=== PATIENT | female | born 1980 | race Hispanic/Latino ===

== ENCOUNTER 2017-08-19 23:16 | Emergency (ER) | payer MEDICAID | END 2017-08-20 01:00 | disposition home or self-care (01) | LOC: EDH 23:16 | DX: L02.413 Cutaneous abscess of right upper limb (principal); E11.9 Type 2 diabetes mellitus without complications; I10 Essential (primary) hypertension; Z79.4 Long term (current) use of insulin; Z98.890 Other specified postprocedural states | CPT/HCPCS: 10060 ==

== ENCOUNTER 2017-08-23 11:20 | Emergency (ER) | payer MEDICAID | END 2017-08-23 12:07 | disposition home or self-care (01) | LOC: EDH 11:20 | DX: L08.9 Local infection of the skin and subcutaneous tissue, unspecified (principal); E11.9 Type 2 diabetes mellitus without complications; I10 Essential (primary) hypertension; Z89.429 Acquired absence of other toe(s), unspecified side; Z79.4 Long term (current) use of insulin | CPT/HCPCS: 87070; 87076 ==

== ENCOUNTER 2017-08-25 10:48 | Emergency (ER) | payer MEDICAID | END 2017-08-25 11:13 | disposition home or self-care (01) | LOC: EDH 10:48 | DX: Z48.01 Encounter for change or removal of surgical wound dressing (principal); I10 Essential (primary) hypertension; E11.65 Type 2 diabetes mellitus with hyperglycemia; E11.40 Type 2 diabetes mellitus with diabetic neuropathy, unspecified; Z79.4 Long term (current) use of insulin; Z98.51 Tubal ligation status; Z98.890 Other specified postprocedural states | CPT/HCPCS: 99281 ==

== ENCOUNTER 2017-09-18 16:25 | Emergency (ER) | payer MEDICAID ==
[2017-09-18 16:56] LABS: APPEARANCE,URINE Cloudy (CLEAR); BILIRUBIN,URINE Negative (NEGATIVE); COLOR,URINE Yellow (YELLOW); GLUCOSE, URINE (UA) >=1000 mg/dL (NEGATIVE); HCG,QUAL RESULT NEGATIVE (NEGATIVE); KETONES,URINE Negative (NEGATIVE); LEUKOCYTE ESTERASE ,URINE Negative (NEGATIVE); NITRATE,URINE Negative (NEGATIVE); OCCULT BLOOD,URINE Small (NEGATIVE); PROTEIN,URINE 300 (NEGATIVE); UROBILINOGEN,URINE 0.2 mg/dL (0.2-1.0)
[2017-09-18 17:09] LABS: BACTERIA,URINE Few /HPF (None Seen); WBC,URINE 0-1 /HPF (0-1)
[2017-09-18 17:13] LABS: BASOPHILS % (AUTO) 1.1 % (0.0-5.0); EOSINOPHILS % (AUTO) 1.6 % (0.0-8.0); HEMATOCRIT 31.5 % (36-48); LYMPHOCYTES % (AUTO) 25.2 % (21.0-51.0); MEAN CORPUSCULAR HEMOGLOBIN 28.6 pg (27.0-33.0); MEAN CORPUSCULAR HGB CONC 33.9 g/dL (32.0-36.0); MEAN CORPUSCULAR VOLUME 84.5 fL (79-99); MONOCYTES % (AUTO) 5.2 % (3.0-13.0); NEUTROPHILS % (AUTO) 66.9 % (40.0-77.0); NUCLEATED RED BLOOD CELLS 0.1 % (0.0-0.19); PLATELET COUNT (AUTO) 161 K/uL (130-400); RED BLOOD CELL COUNT(AUTO) 3.73 MIL/uL (4.00-5.50); RED CELL DISTRIBUTION WIDTH 14.3 % (11.0-15.5)
[2017-09-18 18:02] LABS: CREATININE 0.8 mg/dL (0.5-1.5); POTASSIUM 4.3 mmol/L (3.5-5.1)
== END 2017-09-18 18:14 | disposition home or self-care (01) ==
LOC: EDH 16:25
DX: E11.65 Type 2 diabetes mellitus with hyperglycemia (principal); R35.0 Frequency of micturition; E11.40 Type 2 diabetes mellitus with diabetic neuropathy, unspecified; I10 Essential (primary) hypertension; Z79.4 Long term (current) use of insulin; Z98.51 Tubal ligation status
CPT/HCPCS: 36415; 80048; 81001; 81025; 82948; 85025

== ENCOUNTER 2018-01-12 20:14 | Emergency (ER) | payer MEDICAID | END 2018-01-12 21:53 | disposition home or self-care (01) | LOC: EDH 20:14 | DX: H53.9 Unspecified visual disturbance (principal); E11.9 Type 2 diabetes mellitus without complications; I10 Essential (primary) hypertension; Z98.51 Tubal ligation status; Z98.890 Other specified postprocedural states | CPT/HCPCS: 99282 ==

== ENCOUNTER 2018-12-04 17:42 | Emergency (ER) | payer MEDICAID ==
[2018-12-04 18:50] LABS: BASOPHILS % (AUTO) 1.6 % (0.0-5.0); EOSINOPHILS % (AUTO) 0.8 % (0.0-8.0); HEMATOCRIT 32.6 % (36-48); LYMPHOCYTES % (AUTO) 10.5 % (21.0-51.0); MEAN CORPUSCULAR HEMOGLOBIN 27.3 pg (27.0-33.0); MEAN CORPUSCULAR VOLUME 82.9 fL (79-99); NEUTROPHILS % (AUTO) 81.1 % (40.0-77.0); PLATELET COUNT (AUTO) 198 K/uL (130-400); RED BLOOD CELL COUNT(AUTO) 3.94 MIL/uL (4.00-5.50); RED CELL DISTRIBUTION WIDTH 15.1 % (11.0-15.5); WHITE BLOOD COUNT (AUTO) 14.7 K/uL (4.8-10.8)
[2018-12-04 19:03] LABS: CREATININE 2.4 mg/dL (0.5-1.5); POTASSIUM 4.9 mmol/L (3.5-5.1)
[2018-12-04 19:14] LABS: ALBUMIN 2.2 g/dL (3.5-5.0); BILIRUBIN,TOTAL 0.2 mg/dL (0.2-1.0); TOTAL PROTEIN, SERUM 6.7 g/dL (6.0-8.3)
[2018-12-04] MEDS ORDERED: INSULIN HUMULIN R 100 UNIT/ML 3ML ONE (19:18)
[2018-12-04 19:33] LABS: INR 0.95 (0.85-1.15)
[2018-12-04] MEDS ORDERED: HYDROCODONE/ACETAMINOPHEN 10/325 MG TAB ONE (22:28)
[2018-12-04 22:41] LABS: BILIRUBIN,URINE NEGATIVE (NEGATIVE); COLOR,URINE YELLOW (YELLOW); GLUCOSE, URINE (UA) 500 mg/dL (NEGATIVE); KETONES,URINE NEGATIVE (NEGATIVE); LEUKOCYTE ESTERASE ,URINE SMALL (NEGATIVE); NITRATE,URINE NEGATIVE (NEGATIVE); OCCULT BLOOD,URINE LARGE (NEGATIVE); PH,URINE 5.5 (5.0-8.0); PROTEIN,URINE >=300 mg/dL (NEGATIVE); UROBILINOGEN,URINE 0.2 mg/dL (0.2-1.0)
[2018-12-04 22:42] LABS: APPEARANCE,URINE CLOUDY (CLEAR)
[2018-12-04 22:44] LABS: AMPHET/METH SCREEN,URINE NEGATIVE (NEGATIVE); BARBITURATE SCREEN, URINE NEGATIVE (NEGATIVE); BENZODIAZEPINES SCREEN,URINE NEGATIVE (NEGATIVE); CANNABINOID SCREEN,URINE NEGATIVE (NEGATIVE); COCAINE SCREEN,URINE NEGATIVE (NEGATIVE); OPIATE SCREEN,URINE NEGATIVE (NEGATIVE); PHENCYCLIDINE SCREEN,URINE NEGATIVE (NEGATIVE)
[2018-12-04 23:02] LABS: BACTERIA,URINE Moderate /HPF (None Seen); RBC,URINE 26-50 /HPF (0-1); RENAL EPITHELIAL CELLS,URINE Moderate /HPF (None Seen); SQUAMOUS EPITHELIAL CELL,UR Many /HPF (0-2); WBC,URINE TNTC /HPF (0-1)
[2018-12-04 23:03] LABS: AMORPHOUS SEDIMENT,UR Moderate /LPF (None Seen); TRANSITIONAL EPI CELLS,URINE Few /HPF (None Seen)
== END 2018-12-04 23:28 | disposition home or self-care (01) ==
LOC: EDH 17:42
DX: S30.0XXA Contusion of lower back and pelvis, initial encounter (principal); S09.8XXA Other specified injuries of head, initial encounter; R55 Syncope and collapse; M54.2 Cervicalgia; W18.39XA Other fall on same level, initial encounter; Y93.89 Activity, other specified; Y92.511 Restaurant or cafe as the place of occurrence of the external cause; Y99.8 Other external cause status; R42 Dizziness and giddiness; R51 Headache; E11.40 Type 2 diabetes mellitus with diabetic neuropathy, unspecified; Z79.4 Long term (current) use of insulin; E11.65 Type 2 diabetes mellitus with hyperglycemia; I10 Essential (primary) hypertension; Z98.51 Tubal ligation status
CPT/HCPCS: 36415; 70450; 71045; 72125; 72131; 74176; 80053; 80305; 81001; 82009; 82948 ×2; 84484; 84702; 85025; 85610; 85730; 93005; 96361; 96374; 99285; J1815

== ENCOUNTER 2018-12-05 12:11 | Observation (INO) | payer MEDICAID ==
[~2018-12-05] VITALS: Ht 170.2 cm; Wt 158.3 kg
[2018-12-05 13:12] LABS: APPEARANCE,URINE CLOUDY (CLEAR); BILIRUBIN,URINE NEGATIVE (NEGATIVE); COLOR,URINE YELLOW (YELLOW); GLUCOSE, URINE (UA) >=1000 mg/dL (NEGATIVE); KETONES,URINE NEGATIVE (NEGATIVE); LEUKOCYTE ESTERASE ,URINE SMALL (NEGATIVE); NITRATE,URINE NEGATIVE (NEGATIVE); OCCULT BLOOD,URINE MODERATE (NEGATIVE); PROTEIN,URINE 100 mg/dL (NEGATIVE); UROBILINOGEN,URINE 0.2 mg/dL (0.2-1.0)
[2018-12-05 13:22] LABS: BASOPHILS % (AUTO) 0.5 % (0.0-5.0); EOSINOPHILS % (AUTO) 1.6 % (0.0-8.0); HEMATOCRIT 32.1 % (36-48); LYMPHOCYTES % (AUTO) 19.9 % (21.0-51.0); MEAN CORPUSCULAR HEMOGLOBIN 26.7 pg (27.0-33.0); MEAN CORPUSCULAR HGB CONC 32.6 g/dL (32.0-36.0); MEAN CORPUSCULAR VOLUME 81.8 fL (79-99); MONOCYTES % (AUTO) 7.4 % (3.0-13.0); NEUTROPHILS % (AUTO) 70.6 % (40.0-77.0); PLATELET COUNT (AUTO) 202 K/uL (130-400); RED BLOOD CELL COUNT(AUTO) 3.92 MIL/uL (4.00-5.50); RED CELL DISTRIBUTION WIDTH 14.6 % (11.0-15.5); WHITE BLOOD COUNT (AUTO) 9.2 K/uL (4.8-10.8)
[2018-12-05 13:30] LABS: CREATININE 1.8 mg/dL (0.5-1.5); POTASSIUM 4.2 mmol/L (3.5-5.1)
[2018-12-05 13:34] LABS: ALBUMIN 2.3 g/dL (3.5-5.0); BILIRUBIN,TOTAL 0.1 mg/dL (0.2-1.0); TOTAL PROTEIN, SERUM 6.9 g/dL (6.0-8.3)
[2018-12-05 14:14] LABS: BACTERIA,URINE Many /HPF (None Seen)
[2018-12-05 14:15] LABS: WBC,URINE 26-50 /HPF (0-1)
[2018-12-05] MEDS ORDERED: ACETAMINOPHEN EXTRA STRENGTH 500 MG TABLET ONE (16:23)
[2018-12-05] MEDS ORDERED: CEFTRIAXONE SODIUM 1 GM ONE (16:53)
[2018-12-05] MEDS ORDERED: NITROGLYCERIN 0.4 MG SL TAB SL PRN (19:00)
[2018-12-05] MEDS ORDERED: LACTULOSE 20 GM/30 ML UDCUP PO PRN (19:00)
[2018-12-05] MEDS ORDERED: ONDANSETRON HCL 4 MG/2 ML VIAL IVP PRN (19:00)
[2018-12-05] MEDS ORDERED: SODIUM CHLORIDE 0.9% 10 ML VIAL IVP SCH (19:00)
[2018-12-05] MEDS ORDERED: ACETAMINOPHEN 325 MG TAB PO PRN (19:00)
[2018-12-05] MEDS ORDERED: ZOLPIDEM TARTRATE 5 MG TAB PO PRN (19:00)
[2018-12-05] MEDS ORDERED: DiphenhydrAMINE HCL 50 MG/ML VIAL IVP PRN (19:00)
[2018-12-05] MEDS ORDERED: MAG HYDROX/AL HYDROX/SIMETH ES 30 ML SUSP UDCUP PO PRN (19:00)
[2018-12-05] MEDS ORDERED: DIPHENHYDRAMINE HCL 25 MG CAPSULE PO PRN (19:00)
[2018-12-06 00:55] VITALS: BP 101/54
--- NOTE | 2018-12-06 01:00 | NUR ---
ADMISSION. PT ADMITTED INTO ROOM 414 FROM ER, TRANSFERRED VIA STRETCHER. PT AWAKE, ALERT AND RESPONSIVE. C/O HEADACHE AT THIS TIME, REFER TO eMAR FOR MEDICATION ADMINISTRATION Addendum: 12/06/18 at 0155 by SOFIYA ROSEN RN Amended: Links added.
[2018-12-06] MEDS: ACETAMINOPHEN 325 MG TAB PO PRN ×2 (01:44→06:32)
[2018-12-06] MEDS: SODIUM CHLORIDE 0.9% 1000ML 1,000 ML IV SCH ×3 (02:15→18:18)
[2018-12-06] MEDS: FAMOTIDINE 20MG TAB 20 MG TAB PO SCH ×3 (03:59→20:12)
[2018-12-06 04:57] VITALS: BP 135/77
[2018-12-06 05:39] LABS: BASOPHILS % (AUTO) 0.7 % (0.0-5.0); EOSINOPHILS % (AUTO) 2.5 % (0.0-8.0); HEMATOCRIT 30.1 % (36-48); LYMPHOCYTES % (AUTO) 21.1 % (21.0-51.0); MEAN CORPUSCULAR HEMOGLOBIN 27.6 pg (27.0-33.0); MEAN CORPUSCULAR HGB CONC 33.7 g/dL (32.0-36.0); MEAN CORPUSCULAR VOLUME 81.7 fL (79-99); MONOCYTES % (AUTO) 6.5 % (3.0-13.0); NEUTROPHILS % (AUTO) 69.2 % (40.0-77.0); PLATELET COUNT (AUTO) 159 K/uL (130-400); RED BLOOD CELL COUNT(AUTO) 3.68 MIL/uL (4.00-5.50); RED CELL DISTRIBUTION WIDTH 14.9 % (11.0-15.5); WHITE BLOOD COUNT (AUTO) 8.5 K/uL (4.8-10.8)
[2018-12-06 05:50] LABS: CREATININE 1.2 mg/dL (0.5-1.5); POTASSIUM 3.7 mmol/L (3.5-5.1)
[2018-12-06] MEDS ORDERED: GLUCAGON 1MG KIT 1 MG ML IM PRN (06:15)
[2018-12-06] MEDS ORDERED: DEXTROSE 50%-WATER 50 ML DISP.SYRIN IV PRN (06:15)
[2018-12-06] MEDS: INSULIN HUMULIN R 100 UNIT/ML 3ML SQ SCH ×3 (06:28→22:14)
[2018-12-06 07:30] VITALS: BP 159/87
[2018-12-06] MEDS: ENOXAPARIN SODIUM 30 MG/0.3 ML SQ SCH (08:49)
[2018-12-06 11:00] VITALS: BP 142/65
[2018-12-06] MEDS ORDERED: MECLIZINE HCL 12.5 MG TABLET PO PRN (15:15)
[2018-12-06] MEDS: HYDROCODONE/ACETAMINOPHEN 5/325 MG TAB PO PRN ×2 (15:19→20:15)
[2018-12-06 16:00] VITALS: BP 143/81
[2018-12-06] MEDS ORDERED: CYCL30DR OU (17:05)
[2018-12-06] MEDS ORDERED: OMEP40CA37 PO (17:05)
[2018-12-06] MEDS ORDERED: LEVO50TA11 PO (17:05)
[2018-12-06] MEDS ORDERED: SITA50TA PO (17:05)
[2018-12-06] MEDS ORDERED: METO2.5T2 PO (17:05)
[2018-12-06] MEDS ORDERED: GABA-531 PO (17:05)
[2018-12-06] MEDS ORDERED: ATOR40TA71 PO (17:05)
[2018-12-06] MEDS ORDERED: FURO20TA4 PO (17:05)
[2018-12-06] MEDS ORDERED: AMIT25TA9 PO (17:05)
[2018-12-06] MEDS ORDERED: LOSA25TA41 PO (17:05)
[2018-12-06] MEDS ORDERED: METF-445 PO (17:05)
[2018-12-06] MEDS ORDERED: TYL3B PO (17:05)
[2018-12-06] MEDS ORDERED: LORA10TA7 PO (17:05)
[2018-12-06 20:00] VITALS: BP 154/71
[2018-12-07] VITALS: BP 123/64
[2018-12-07 04:00] VITALS: BP_SYST 108; BP_SYST 135; BP_SYST 98; BP_DIAS 58; BP_DIAS 59; BP_DIAS 73
[2018-12-07] MEDS: SODIUM CHLORIDE 0.9% 1000ML 1,000 ML IV SCH ×2 (04:08→10:15)
[2018-12-07] MEDS: HYDROCODONE/ACETAMINOPHEN 5/325 MG TAB PO PRN (04:09)
[2018-12-07 04:25] LABS: BASOPHILS % (AUTO) 0.7 % (0.0-5.0); EOSINOPHILS % (AUTO) 3.1 % (0.0-8.0); HEMATOCRIT 29.7 % (36-48); LYMPHOCYTES % (AUTO) 29.6 % (21.0-51.0); MEAN CORPUSCULAR HEMOGLOBIN 26.9 pg (27.0-33.0); MEAN CORPUSCULAR HGB CONC 32.7 g/dL (32.0-36.0); MEAN CORPUSCULAR VOLUME 82.3 fL (79-99); MONOCYTES % (AUTO) 8.2 % (3.0-13.0); NEUTROPHILS % (AUTO) 58.4 % (40.0-77.0); PLATELET COUNT (AUTO) 178 K/uL (130-400); RED BLOOD CELL COUNT(AUTO) 3.61 MIL/uL (4.00-5.50); RED CELL DISTRIBUTION WIDTH 14.8 % (11.0-15.5); WHITE BLOOD COUNT (AUTO) 7.4 K/uL (4.8-10.8)
[2018-12-07 04:31] LABS: POTASSIUM 3.8 mmol/L (3.5-5.1)
[2018-12-07] MEDS: INSULIN HUMULIN R 100 UNIT/ML 3ML SQ SCH ×3 (06:33→16:30)
[2018-12-07] MEDS ORDERED: HYDROCODONE/ACETAMINOPHEN 7.5/325 MG TAB PO PRN (07:15)
[2018-12-07 08:00] VITALS: BP 155/88
[2018-12-07] MEDS ORDERED: CEFTRIAXONE SODIUM 2 GM VIAL IVP SCH (08:00)
[2018-12-07] MEDS ORDERED: CEFTRIAXONE SODIUM 1 GM IVP SCH (08:00)
[2018-12-07] MEDS: FAMOTIDINE 20MG TAB 20 MG TAB PO SCH (10:09)
[2018-12-07] MEDS: METFORMIN HCL 500 MG TABLET PO SCH ×3 (10:09→17:00)
[2018-12-07] MEDS: GLIPIZIDE 5 MG TABLET PO SCH ×2 (10:09→16:30)
[2018-12-07] MEDS: ENOXAPARIN SODIUM 30 MG/0.3 ML SQ SCH (10:12)
[2018-12-07 12:00] VITALS: BP 146/77
[2018-12-07] MEDS ORDERED: LEVO500T2 PO (15:47)
--- NOTE | 2018-12-07 17:55 | NUR ---
DISCHARGE SUMMARY WAS REVIEW WITH PT. . AT PRESENT , PT TO COMPLETE ANTIBOTICS AND TO SEE PRIVATE DR. IN 3-5 DAYS , DENIES ANY DISCOMFORT . FOR NOW. PT STATED THAT SHE IS NOT ABLE TO SIT VERY WELL DUE TO HER BUTTOCKS , HURTING . PT HAS PAIN MEDICATION AT HOME AND CAN RESUME THE PAIN MEDICATION GIVEN PER HER PRIVATE DRDedrick LOREDO TO HER L[facility] DC,WITH NO HEMATOMA NOTED .A HERMELINDA APPLICATION ON . .
== END 2018-12-07 17:55 | disposition home or self-care (01) ==
LOC: EDH 12:11 → EDHIP 12:12 → 4CH 12-06 00:21
PROVIDERS: ADMIT Family Medicine; ATTEND Family Medicine
DX: R55 Syncope and collapse (principal); E03.9 Hypothyroidism, unspecified; E11.319 Type 2 diabetes mellitus with unspecified diabetic retinopathy without macular edema; E11.40 Type 2 diabetes mellitus with diabetic neuropathy, unspecified; E11.65 Type 2 diabetes mellitus with hyperglycemia; E66.01 Morbid (severe) obesity due to excess calories; E78.5 Hyperlipidemia, unspecified; I10 Essential (primary) hypertension; N19 Unspecified kidney failure; N39.0 Urinary tract infection, site not specified; W19.XXXA Unspecified fall, initial encounter; Y92.009 Unspecified place in unspecified non-institutional (private) residence as the place of occurrence of the external cause; Z68.43 Body mass index [BMI] 50.0-59.9, adult; Z89.429 Acquired absence of other toe(s), unspecified side; Z98.51 Tubal ligation status; Z79.899 Other long term (current) drug therapy
CPT/HCPCS: 36415 ×3; 78582; 80048 ×2; 80053; 82550; 82947; 82948 ×7; 84484; 85025 ×3; 85378; 87088; 93005; 93306; 93880; 93970; 96361 ×2; 96372 ×3; 96374; 99284; A9540; A9558; G0378 ×54; J0696 ×2; J1650 ×2; J1815 ×5

== ENCOUNTER 2019-01-31 01:38 | Emergency (ER) | payer MEDICAID ==
[~2019-01-31 01:38] MED LIST: AMIT25TA9 PO; ATOR40TA71 PO; CYCL30DR OU; FURO20TA4 PO; GABA-531 PO; LEVO500T2 PO; LEVO50TA11 PO; LORA10TA7 PO; LOSA25TA41 PO; METF-445 PO; METO2.5T2 PO; OMEP40CA37 PO; SITA50TA PO; TYL3B PO
[2019-01-31] MEDS ORDERED: KETOROLAC TROMETHAMINE 60 MG/2 ML VIAL ONE (02:00)
== END 2019-01-31 03:50 | disposition home or self-care (01) ==
LOC: EDH 01:38
DX: S20.212A Contusion of left front wall of thorax, initial encounter (principal); I10 Essential (primary) hypertension; E11.40 Type 2 diabetes mellitus with diabetic neuropathy, unspecified; Z79.4 Long term (current) use of insulin; W18.39XA Other fall on same level, initial encounter; Y93.01 Activity, walking, marching and hiking; Y92.89 Other specified places as the place of occurrence of the external cause; Y99.8 Other external cause status
CPT/HCPCS: 71250; 96372; 99284; J1885

== ENCOUNTER 2020-08-08 07:12 | Day surgery (SDC) | payer MEDICAID ==
[2020-08-06 12:19] LABS: BASOPHILS % (AUTO) 0.3 % (0.0-5.0); EOSINOPHILS % (AUTO) 3.6 % (0.0-8.0); HEMATOCRIT 30.1 % (36-48); LYMPHOCYTES % (AUTO) 16.6 % (21.0-51.0); MEAN CORPUSCULAR HEMOGLOBIN 29.1 pg (27.0-33.0); MEAN CORPUSCULAR HGB CONC 31.6 g/dL (32.0-36.0); NEUTROPHILS % (AUTO) 73.2 % (40.0-77.0); PLATELET COUNT (AUTO) 183 K/uL (130-400); RED BLOOD CELL COUNT(AUTO) 3.27 MIL/uL (4.00-5.50); RED CELL DISTRIBUTION WIDTH 13.8 % (11.0-15.5); WHITE BLOOD COUNT (AUTO) 8.6 K/uL (4.8-10.8)
[2020-08-06 12:26] LABS: CREATININE 1.5 mg/dL (0.5-1.5); POTASSIUM 3.7 mmol/L (3.5-5.1)
[2020-08-06 12:35] LABS: INR 1.02 (0.85-1.15); PROTHROMBIN TIME 10.9 SEC (9.6-11.6)
[2020-08-06 12:37] LABS: PARTIAL THROMBOPLASTIN TIME 24.8 SEC (26.3-35.5)
[2020-08-07 09:29] VITALS: BP 146/62
[~2020-08-08] VITALS: Ht 170.2 cm; Wt 158.8 kg
[2020-08-08] VITALS (10 sets, daily range): BP systolic 133–162; BP diastolic 55–71
[~2020-08-08 07:12] MED LIST changes: +CLON1PAT13 TD; -CYCL30DR OU; +FERR325T22 PO; -FURO20TA4 PO; +FURO40TA5 PO; +GABA-529 PO; -GABA-531 PO; +HYDR100T27 PO; +INSLAN SQ; +INSU200I SQ; -LEVO500T2 PO; +LINA5TAB PO; -LORA10TA7 PO; +LOSA100T58 PO; -LOSA25TA41 PO; -METF-445 PO; -METO2.5T2 PO; +METO25TA6 PO; +METO5TAB7 PO; -OMEP40CA37 PO; -SITA50TA PO; -TYL3B PO
[2020-08-08] MEDS ORDERED: SODIUM CHLORIDE 0.9% 1000ML 1,000 ML IV ONE (08:51)
[2020-08-08] MEDS ORDERED: NITROGLYCERIN 2 MG/VIAL VIAL IV ONE (09:21)
[2020-08-08] MEDS ORDERED: NICARDIPINE HCL 25 MG/10 ML ML IV ONE (09:21)
[2020-08-08] MEDS ORDERED: IODIXANOL 320 MG/ML 100 ML VIAL ONE (09:21)
[2020-08-08] MEDS ORDERED: MIDAZOLAM HCL 1 MG/ML 2ML VIAL ONE (09:22)
[2020-08-08] MEDS ORDERED: LIDOCAINE HCL 2% 20ML ONE (09:22)
[2020-08-08] MEDS ORDERED: FENTANYL CITRATE PF 50 MCG/1 ML 2ML VIAL ONE (09:22)
[2020-08-08] MEDS ORDERED: HEPARIN SODIUM 1000UNIT/ML 10ML VIAL ONE (09:46)
[2020-08-08] MEDS ORDERED: LABETALOL 20 MG/4 ML DISP.SYRIN IV ONE (10:16)
[2020-08-08] MEDS ORDERED: ACETAMINOPHEN-CODEINE 300/30MG TAB PO PRN ×2 (10:45)
[2020-08-08] MEDS ORDERED: SODIUM CHLORIDE 0.9% 1000ML 1,000 ML IV SCH (10:45)
== END 2020-08-08 14:25 | disposition home or self-care (01) ==
LOC: DAH 07:12
PROVIDERS: ATTEND Internal Medicine Cardiovascular Disease
DX: I70.244 Atherosclerosis of native arteries of left leg with ulceration of heel and midfoot (principal); L97.428 Non-pressure chronic ulcer of left heel and midfoot with other specified severity; I70.92 Chronic total occlusion of artery of the extremities; M86.172 Other acute osteomyelitis, left ankle and foot; E11.51 Type 2 diabetes mellitus with diabetic peripheral angiopathy without gangrene; E11.22 Type 2 diabetes mellitus with diabetic chronic kidney disease; I12.9 Hypertensive chronic kidney disease with stage 1 through stage 4 chronic kidney disease, or unspecified chronic kidney disease; N18.30 Chronic kidney disease, stage 3 unspecified; E11.69 Type 2 diabetes mellitus with other specified complication; E66.01 Morbid (severe) obesity due to excess calories; Z79.4 Long term (current) use of insulin; Z79.899 Other long term (current) drug therapy; Z98.890 Other specified postprocedural states; Z98.891 History of uterine scar from previous surgery; Z83.3 Family history of diabetes mellitus; Z82.49 Family history of ischemic heart disease and other diseases of the circulatory system; Z79.01 Long term (current) use of anticoagulants
CPT/HCPCS: 36246; 36415; 71045; 75716; 80048; 82948; 85025; 85610; 85730; 93005; A4215; A4216; A4221; A4222; A4223 ×3; A4606; A4663; C1760; C1769; C1894 ×2; J1644; J2250; J3010; J3490 ×3; J7030; Q9967; 99156; 99157

== ENCOUNTER 2021-06-05 15:23 | Inpatient (IN) | payer MEDICAID ==
[~2021-06-05] VITALS: Ht 170.2 cm; Wt 157.7 kg
[2021-06-05 16:14] LABS: BASOPHILS % (AUTO) 0.3 % (0.0-5.0); EOSINOPHILS % (AUTO) 2.2 % (0.0-8.0); HEMATOCRIT 33.6 % (36-48); LYMPHOCYTES % (AUTO) 14.5 % (21.0-51.0); MEAN CORPUSCULAR HEMOGLOBIN 29.5 pg (27.0-33.0); MEAN CORPUSCULAR HGB CONC 32.1 g/dL (32.0-36.0); MEAN CORPUSCULAR VOLUME 91.8 fL (79-99); MONOCYTES % (AUTO) 5.2 % (3.0-13.0); NEUTROPHILS % (AUTO) 77.4 % (40.0-77.0); PLATELET COUNT (AUTO) 151 K/uL (130-400); RED BLOOD CELL COUNT(AUTO) 3.66 MIL/uL (4.00-5.50); RED CELL DISTRIBUTION WIDTH 13.4 % (11.0-15.5); WHITE BLOOD COUNT (AUTO) 11.1 K/uL (4.8-10.8)
[2021-06-05 16:29] LABS: CREATININE 2.3 mg/dL (0.5-1.5); POTASSIUM 3.6 mmol/L (3.5-5.1)
[2021-06-05 16:34] LABS: BILIRUBIN,TOTAL 0.1 mg/dL (0.2-1.0); TOTAL PROTEIN, SERUM 6.9 g/dL (6.0-8.3)
[2021-06-05] MEDS ORDERED: ALTEPLASE 100MG 1 VIAL IVP PRN (17:00)
[2021-06-05 17:19] LABS: INR 0.99 (0.85-1.15); PROTHROMBIN TIME 10.8 SEC (9.6-11.6)
[2021-06-05 17:20] LABS: PARTIAL THROMBOPLASTIN TIME 24.5 SEC (26.3-35.5)
[2021-06-05 17:35] LABS: CREATINE KINASE, TOTAL 43 U/L (21-232)
[2021-06-05 17:47] LABS: LDL DIRECT 85 mg/dL (0-99)
[2021-06-05] MEDS ORDERED: ONDANSETRON 4MG INJ IV PRN (21:00)
[2021-06-05 21:28] LABS: APPEARANCE,URINE Clear (CLEAR); BILIRUBIN,URINE Negative (NEGATIVE); COLOR,URINE Yellow (YELLOW); GLUCOSE, URINE (UA) 250 mg/dL (NEGATIVE); KETONES,URINE Negative (NEGATIVE); LEUKOCYTE ESTERASE ,URINE Negative (NEGATIVE); NITRATE,URINE Negative (NEGATIVE); OCCULT BLOOD,URINE Negative (NEGATIVE); PROTEIN,URINE >=1000 mg/dL (NEGATIVE); UROBILINOGEN,URINE 0.2 mg/dL (0.2-1.0)
[2021-06-05 21:38] LABS: BACTERIA,URINE Moderate /HPF (None Seen); MUCUS,URINE Few LPF (None Seen); SQUAMOUS EPITHELIAL CELL,UR 0-2 /HPF (0-2)
[2021-06-05] MEDS: LACTATED RINGERS 1000ML 1,000 ML IV SCH (22:08)
[2021-06-05] MEDS: ATORVASTATIN 40 MG TABLET PO SCH (22:08)
[2021-06-05] MEDS: NICARDIPINE 25MG INJ 25 MG in 0.9% NACL 250ML 240 ML IV SCH (22:20)
[2021-06-06] VITALS (19 sets, daily range): BP systolic 123–191; BP diastolic 63–99
[2021-06-06] MEDS ORDERED: TRAMADOL HCL 50 MG TABLET PO ONE (01:00)
[2021-06-06 05:47] LABS: BASOPHILS % (AUTO) 0.4 % (0.0-5.0); EOSINOPHILS % (AUTO) 2.1 % (0.0-8.0); HEMATOCRIT 32.5 % (36-48); MEAN CORPUSCULAR HEMOGLOBIN 29.1 pg (27.0-33.0); MONOCYTES % (AUTO) 5.6 % (3.0-13.0); NEUTROPHILS % (AUTO) 74.5 % (40.0-77.0); PLATELET COUNT (AUTO) 152 K/uL (130-400); RED BLOOD CELL COUNT(AUTO) 3.57 MIL/uL (4.00-5.50); RED CELL DISTRIBUTION WIDTH 13.6 % (11.0-15.5); WHITE BLOOD COUNT (AUTO) 10.9 K/uL (4.8-10.8)
[2021-06-06 06:09] LABS: HEMOGLOBIN A1C 6.9 % (4.0-6.0)
[2021-06-06 06:25] LABS: CREATININE 1.8 mg/dL (0.5-1.5); MAGNESIUM 2.3 mg/dL (1.80-2.40); PHOSPHORUS 3.6 mg/dL (2.5-4.9); POTASSIUM 3.9 mmol/L (3.5-5.1)
[2021-06-06] MEDS: NICARDIPINE 25MG INJ 25 MG in 0.9% NACL 250ML 240 ML IV SCH (07:24)
[2021-06-06] MEDS: LACTATED RINGERS 1000ML 1,000 ML IV SCH (09:26)
[2021-06-06] MEDS: FAMOTIDINE 20MG VIAL IV SCH (09:26)
[2021-06-06] MEDS ORDERED: PHARMACY COMMUNICATION MISC SCH (10:00)
[2021-06-06] MEDS: BUTALB/ACETAMINOPHEN/CAFFEINE 1 EACH TABLET PO PRN ×2 (11:28→18:18)
[2021-06-06] MEDS: ASPIRIN 325MG TAB PO SCH (12:37)
[2021-06-06] MEDS ORDERED: VANCOMYCIN PROTOCOL PER PHARMACY IV SCH (16:00)
[2021-06-06] MEDS ORDERED: COMPOUND IV REFRIGERATED 1 EACH IVSOLN MISC PRN (16:30)
[2021-06-06 16:59] LABS: PROTEIN,URINE RANDOM 574.8 mg/dL (0-11.9)
[2021-06-06] MEDS ORDERED: VANCOMYCIN 1.75GM/250ML NS IV SCH ×2 (17:00)
[2021-06-06] MEDS ORDERED: GABA-529 PO (18:48)
[2021-06-06] MEDS ORDERED: ERGO400T7 PO (18:55)
[2021-06-06] MEDS ORDERED: BUPROPION HCL (18:55)
[2021-06-06] MEDS: ATORVASTATIN 40 MG TABLET PO SCH (20:45)
[2021-06-06] MEDS: INSULIN HUMULIN R 100 UNIT/ML 3ML SQ SCH (23:05)
[2021-06-07] VITALS (24 sets, daily range): BP systolic 128–198; BP diastolic 67–97
[2021-06-07 04:06] LABS: BASOPHILS % (AUTO) 0.4 % (0.0-5.0); EOSINOPHILS % (AUTO) 2.7 % (0.0-8.0); HEMATOCRIT 32.7 % (36-48); LYMPHOCYTES % (AUTO) 22.1 % (21.0-51.0); MEAN CORPUSCULAR HEMOGLOBIN 28.8 pg (27.0-33.0); MEAN CORPUSCULAR HGB CONC 31.2 g/dL (32.0-36.0); MEAN CORPUSCULAR VOLUME 92.4 fL (79-99); MONOCYTES % (AUTO) 7.4 % (3.0-13.0); NEUTROPHILS % (AUTO) 67.2 % (40.0-77.0); PLATELET COUNT (AUTO) 154 K/uL (130-400); RED BLOOD CELL COUNT(AUTO) 3.54 MIL/uL (4.00-5.50); RED CELL DISTRIBUTION WIDTH 13.5 % (11.0-15.5); WHITE BLOOD COUNT (AUTO) 9.2 K/uL (4.8-10.8)
[2021-06-07 04:14] LABS: % IRON SATURATION 34.1 % (22-44)
[2021-06-07 04:21] LABS: ALBUMIN 1.9 g/dL (3.5-5.0); BILIRUBIN,TOTAL 0.2 mg/dL (0.2-1.0); MAGNESIUM 2.3 mg/dL (1.80-2.40); PHOSPHORUS 4.1 mg/dL (2.5-4.9); POTASSIUM 4.2 mmol/L (3.5-5.1); TOTAL PROTEIN, SERUM 6.7 g/dL (6.0-8.3)
[2021-06-07] MEDS: ASPIRIN 325MG TAB PO SCH ×2 (08:46→11:43)
[2021-06-07] MEDS: Vitamin B Complex/Vit C/Folic Acid PO SCH (08:46)
[2021-06-07] MEDS: FAMOTIDINE 20MG VIAL IV SCH (08:46)
[2021-06-07] MEDS: INSULIN HUMULIN R 100 UNIT/ML 3ML SQ SCH ×4 (08:48→20:45)
[2021-06-07] MEDS: BUTALB/ACETAMINOPHEN/CAFFEINE 1 EACH TABLET PO PRN (13:11)
[2021-06-07] MEDS: AMOX/CLAV 875/125MG TAB PO SCH (14:38)
[2021-06-07] MEDS: HEPARIN 5,000 UNIT VIAL SQ SCH ×2 (14:49→20:51)
[2021-06-07] MEDS: ATORVASTATIN 40 MG TABLET PO SCH (20:41)
[2021-06-07] MEDS: HYDRALAZINE 25MG TABLET PO SCH (20:41)
[2021-06-07] MEDS: GABAPENTIN 100 MG CAPSULE PO SCH (20:41)
[2021-06-07] MEDS: FERROUS SULFATE 325 MG TABLET.DR PO SCH (20:42)
[2021-06-07] MEDS: METOPROLOL TARTRATE 25 MG TAB PO SCH (20:42)
[2021-06-07] MEDS: INSULIN GLARGINE 100 UNITS/ML 10 ML VIAL SQ SCH (20:50)
[2021-06-07] MEDS ORDERED: INSULIN GLARGINE 100 UNITS/ML 10 ML VIAL SQ SCH (21:00)
[2021-06-08] VITALS (21 sets, daily range): BP systolic 127–215; BP diastolic 61–116
[2021-06-08] MEDS ORDERED: NITROGLYCERIN 1GM OINT 1 INCH/1GM TD STA (01:41)
[2021-06-08] MEDS: AMOX/CLAV 875/125MG TAB PO SCH ×2 (02:32→13:47)
[2021-06-08 03:53] LABS: BASOPHILS % (AUTO) 0.3 % (0.0-5.0); EOSINOPHILS % (AUTO) 3.6 % (0.0-8.0); HEMATOCRIT 31.2 % (36-48); LYMPHOCYTES % (AUTO) 19.8 % (21.0-51.0); MEAN CORPUSCULAR HEMOGLOBIN 28.9 pg (27.0-33.0); MEAN CORPUSCULAR HGB CONC 32.1 g/dL (32.0-36.0); MEAN CORPUSCULAR VOLUME 90.2 fL (79-99); MONOCYTES % (AUTO) 7.2 % (3.0-13.0); NEUTROPHILS % (AUTO) 68.8 % (40.0-77.0); PLATELET COUNT (AUTO) 141 K/uL (130-400); RED BLOOD CELL COUNT(AUTO) 3.46 MIL/uL (4.00-5.50); RED CELL DISTRIBUTION WIDTH 13.2 % (11.0-15.5); WHITE BLOOD COUNT (AUTO) 8.8 K/uL (4.8-10.8)
[2021-06-08 04:10] LABS: ALBUMIN 1.8 g/dL (3.5-5.0); BILIRUBIN,TOTAL 0.2 mg/dL (0.2-1.0); CREATININE 2.1 mg/dL (0.5-1.5); MAGNESIUM 2.3 mg/dL (1.80-2.40); PHOSPHORUS 3.8 mg/dL (2.5-4.9); POTASSIUM 4.5 mmol/L (3.5-5.1); TOTAL PROTEIN, SERUM 6.6 g/dL (6.0-8.3)
[2021-06-08] MEDS ORDERED: LABETALOL 20MG VIAL IV PRN (04:30)
[2021-06-08 04:36] LABS: THYROID STIMULATING HORMONE 3.98 uIU/mL (0.36-3.74)
[2021-06-08] MEDS: HEPARIN 5,000 UNIT VIAL SQ SCH ×3 (06:35→22:33)
[2021-06-08] MEDS: LEVOTHYROXINE 50 MCG TABLET PO SCH (06:35)
[2021-06-08] MEDS: INSULIN HUMULIN R 100 UNIT/ML 3ML SQ SCH ×4 (06:36→20:48)
[2021-06-08] MEDS: GABAPENTIN 100 MG CAPSULE PO SCH ×2 (09:22→20:47)
[2021-06-08] MEDS: METOPROLOL TARTRATE 25 MG TAB PO SCH (09:22)
[2021-06-08] MEDS: FERROUS SULFATE 325 MG TABLET.DR PO SCH ×2 (09:22→20:46)
[2021-06-08] MEDS: Vitamin B Complex/Vit C/Folic Acid PO SCH (09:22)
[2021-06-08] MEDS: HYDRALAZINE 25MG TABLET PO SCH ×3 (09:23→20:47)
[2021-06-08] MEDS: ASPIRIN 325MG TAB PO SCH (09:23)
[2021-06-08] MEDS: FAMOTIDINE 20MG VIAL IV SCH (09:23)
[2021-06-08] MEDS: **HM** BUPROPION XL 150MG PO SCH (09:26)
[2021-06-08] MEDS: INSULIN GLARGINE 100 UNITS/ML 10 ML VIAL SQ SCH ×2 (09:38→20:49)
[2021-06-08] MEDS ORDERED: CLONIDINE 0.2 MG/ 24 HR PATCH TD SCH (15:00)
[2021-06-08] MEDS: ATORVASTATIN 40 MG TABLET PO SCH (20:47)
[2021-06-08] MEDS: METOPROLOL TARTRATE 50 MG TAB PO SCH (20:47)
[2021-06-09] MEDS: AMOX/CLAV 875/125MG TAB PO SCH ×2 (02:36→13:52)
[2021-06-09 03:25] VITALS: BP 158/76
[2021-06-09] MEDS: HEPARIN 5,000 UNIT VIAL SQ SCH ×3 (06:11→22:52)
[2021-06-09] MEDS: LEVOTHYROXINE 50 MCG TABLET PO SCH (06:18)
[2021-06-09] MEDS: INSULIN HUMULIN R 100 UNIT/ML 3ML SQ SCH ×4 (06:20→20:56)
[2021-06-09 07:18] LABS: BASOPHILS % (AUTO) 0.3 % (0.0-5.0); EOSINOPHILS % (AUTO) 3.4 % (0.0-8.0); HEMATOCRIT 32.3 % (36-48); LYMPHOCYTES % (AUTO) 20.5 % (21.0-51.0); MEAN CORPUSCULAR HEMOGLOBIN 28.8 pg (27.0-33.0); MEAN CORPUSCULAR HGB CONC 31.6 g/dL (32.0-36.0); MEAN CORPUSCULAR VOLUME 91.2 fL (79-99); MONOCYTES % (AUTO) 5.8 % (3.0-13.0); NEUTROPHILS % (AUTO) 69.6 % (40.0-77.0); PLATELET COUNT (AUTO) 147 K/uL (130-400); RED BLOOD CELL COUNT(AUTO) 3.54 MIL/uL (4.00-5.50); RED CELL DISTRIBUTION WIDTH 13.3 % (11.0-15.5); WHITE BLOOD COUNT (AUTO) 11.5 K/uL (4.8-10.8)
[2021-06-09 07:27] LABS: CREATININE 2.1 mg/dL (0.5-1.5); MAGNESIUM 2.5 mg/dL (1.80-2.40); POTASSIUM 4.3 mmol/L (3.5-5.1)
[2021-06-09 08:01] VITALS: BP 161/87
[2021-06-09] MEDS: Vitamin B Complex/Vit C/Folic Acid PO SCH (09:01)
[2021-06-09] MEDS: ASPIRIN 325MG TAB PO SCH (09:01)
[2021-06-09] MEDS: FAMOTIDINE 20MG VIAL IV SCH (09:02)
[2021-06-09] MEDS: METOPROLOL TARTRATE 50 MG TAB PO SCH ×2 (09:02→20:55)
[2021-06-09] MEDS: HYDRALAZINE 25MG TABLET PO SCH ×3 (09:02→20:54)
[2021-06-09] MEDS: GABAPENTIN 100 MG CAPSULE PO SCH ×2 (09:02→20:55)
[2021-06-09] MEDS: FERROUS SULFATE 325 MG TABLET.DR PO SCH ×2 (09:02→20:55)
[2021-06-09] MEDS: INSULIN GLARGINE 100 UNITS/ML 10 ML VIAL SQ SCH ×2 (09:04→20:57)
[2021-06-09] MEDS: **HM** BUPROPION XL 150MG PO SCH (10:59)
[2021-06-09] MEDS ORDERED: LINAGLIPTIN 5 MG TABLET PO SCH (11:00)
[2021-06-09 11:14] VITALS: BP 143/83
[2021-06-09 16:12] VITALS: BP 154/63
[2021-06-09 20:48] VITALS: BP 159/75
[2021-06-09] MEDS: ATORVASTATIN 40 MG TABLET PO SCH (20:54)
[2021-06-09 23:32] VITALS: BP 151/75
[2021-06-10] MEDS: AMOX/CLAV 875/125MG TAB PO SCH (01:44)
[2021-06-10 04:26] VITALS: BP 145/75
[2021-06-10] MEDS: HEPARIN 5,000 UNIT VIAL SQ SCH (06:05)
[2021-06-10] MEDS: INSULIN HUMULIN R 100 UNIT/ML 3ML SQ SCH ×2 (06:29→11:30)
[2021-06-10] MEDS: LEVOTHYROXINE 50 MCG TABLET PO SCH (06:29)
[2021-06-10 08:00] VITALS: BP 153/71
[2021-06-10] MEDS: GABAPENTIN 100 MG CAPSULE PO SCH (08:47)
[2021-06-10] MEDS: Vitamin B Complex/Vit C/Folic Acid PO SCH (08:47)
[2021-06-10] MEDS: FERROUS SULFATE 325 MG TABLET.DR PO SCH (08:47)
[2021-06-10] MEDS: HYDRALAZINE 25MG TABLET PO SCH (08:47)
[2021-06-10] MEDS: ASPIRIN 325MG TAB PO SCH (08:47)
[2021-06-10] MEDS: FAMOTIDINE 20MG VIAL IV SCH (08:47)
[2021-06-10] MEDS: METOPROLOL TARTRATE 50 MG TAB PO SCH (08:48)
[2021-06-10] MEDS: INSULIN GLARGINE 100 UNITS/ML 10 ML VIAL SQ SCH (09:01)
[2021-06-10] MEDS: **HM** BUPROPION XL 150MG PO SCH (09:03)
[2021-06-10] MEDS ORDERED: ATOR40TA69 PO (09:26)
[2021-06-10] MEDS ORDERED: AEC81 PO (09:26)
[2021-06-10] MEDS ORDERED: CLOP75TA14 PO (09:26)
[2021-06-10] MEDS ORDERED: METO50 PO (09:26)
[2021-06-10] MEDS ORDERED: AMOX1TAB16 PO (09:26)
[2021-06-10 11:37] VITALS: BP_SYST 131; BP_SYST 156; BP_DIAS 53; BP_DIAS 77
[2021-06-12] MEDS ORDERED: CLONIDINE 0.2 MG/ 24 HR PATCH TD SCH (09:00)
== END 2021-06-10 12:30 | disposition home or self-care (01) | DRG 45 ==
LOC: EDH 15:23 → EDHIP 15:24 → 2DH 06-06 05:29 → 4BH 06-08 19:57
PROVIDERS: ADMIT Internal Medicine; ATTEND Internal Medicine
PROC: 5A09357 Assistance with Respiratory Ventilation, Less than 24 Consecutive Hours, Continuous Positive Airway Pressure (ICD-10-PCS; principal; 2021-06-07)
PROC: 5A09357 Assistance with Respiratory Ventilation, Less than 24 Consecutive Hours, Continuous Positive Airway Pressure (ICD-10-PCS; 2021-06-08)
PROC: 5A09357 Assistance with Respiratory Ventilation, Less than 24 Consecutive Hours, Continuous Positive Airway Pressure (ICD-10-PCS; 2021-06-09)
PROC: 5A09357 Assistance with Respiratory Ventilation, Less than 24 Consecutive Hours, Continuous Positive Airway Pressure (ICD-10-PCS; 2021-06-10)
DX: I63.89 Other cerebral infarction (principal); E11.22 Type 2 diabetes mellitus with diabetic chronic kidney disease; E11.40 Type 2 diabetes mellitus with diabetic neuropathy, unspecified; N17.9 Acute kidney failure, unspecified; N18.4 Chronic kidney disease, stage 4 (severe); G81.94 Hemiplegia, unspecified affecting left nondominant side; E11.51 Type 2 diabetes mellitus with diabetic peripheral angiopathy without gangrene; I12.9 Hypertensive chronic kidney disease with stage 1 through stage 4 chronic kidney disease, or unspecified chronic kidney disease; I16.1 Hypertensive emergency; B95.2 Enterococcus as the cause of diseases classified elsewhere; E03.9 Hypothyroidism, unspecified; D64.9 Anemia, unspecified; E66.2 Morbid (severe) obesity with alveolar hypoventilation; R29.705 NIHSS score 5; E78.5 Hyperlipidemia, unspecified; N39.0 Urinary tract infection, site not specified; Z68.43 Body mass index [BMI] 50.0-59.9, adult; E78.00 Pure hypercholesterolemia, unspecified; G51.0 Bell's palsy; J45.909 Unspecified asthma, uncomplicated; Z53.29 Procedure and treatment not carried out because of patient's decision for other reasons; Z79.82 Long term (current) use of aspirin; Z89.511 Acquired absence of right leg below knee; Z91.19 Patient's noncompliance with other medical treatment and regimen; Z82.49 Family history of ischemic heart disease and other diseases of the circulatory system
CPT/HCPCS: 36415; 70450; 70544; 70547; 70551; 71045; 80048; 80053; 80061; 80202; 81001; 82550; 82570; 82607; 82728; 82948; 83036; 83540; 83550; 83605; 83721; 83735; 83880; 84100; 84145; 84156; 84443; 84484; 85025; 85610; 85730; 87040; 87077; 87088; 87186; 92610; 93005; 93306; 93880; 94660; 97039; 99291; G0378; J1644; J1815; J3370; J3490; J7050; J7120

== ENCOUNTER 2023-02-14 00:11 | Emergency (ER) | payer MEDICAID ==
[~2023-02-14] VITALS: Ht 170.2 cm; Wt 155.6 kg
[~2023-02-14 00:11] MED LIST changes: -AMIT25TA9 PO; +ASPI-1005 PO; +ATOR40TA69 PO; -ATOR40TA71 PO; +BUPROPION HCL; +CETI10TA87 PO; -CLON1PAT13 TD; +FURO40SO4 PO; -FURO40TA5 PO; +Folic Acid/Vitamin B Comp W-C PO; +INSU100C14 SQ; -INSU200I SQ; -LINA5TAB PO; -LOSA100T58 PO; -METO25TA6 PO; +METO50 PO; +NIFE90TA65 PO
[2023-02-14] MEDS ORDERED: ONDANSETRON ODT 4MG TAB ONE (00:20)
[2023-02-14 02:23] LABS: BASOPHILS % (AUTO) 0.3 % (0.0-5.0); EOSINOPHILS % (AUTO) 1.9 % (0.0-8.0); HEMATOCRIT 29.4 % (36-48); LYMPHOCYTES % (AUTO) 13.5 % (21.0-51.0); MEAN CORPUSCULAR HEMOGLOBIN 30.7 pg (27.0-33.0); MEAN CORPUSCULAR HGB CONC 31.6 g/dL (32.0-36.0); MONOCYTES % (AUTO) 7.6 % (3.0-13.0); PLATELET COUNT (AUTO) 128 K/uL (130-400); RED BLOOD CELL COUNT(AUTO) 3.03 MIL/uL (4.00-5.50); RED CELL DISTRIBUTION WIDTH 13.6 % (11.0-15.5)
[2023-02-14] MEDS ORDERED: ONDANSETRON 4MG INJ IVP ONE (02:30)
[2023-02-14] MEDS ORDERED: 0.9%NACL 1000ML 1,000 ML IV SCH (02:30)
[2023-02-14 02:42] LABS: CREATININE 2.7 mg/dL (0.5-1.5); POTASSIUM 4.2 mmol/L (3.5-5.1)
[2023-02-14 02:47] LABS: MAGNESIUM 2.4 mg/dL (1.80-2.40); TOTAL PROTEIN, SERUM 7.1 g/dL (6.0-8.3)
[2023-02-14] MEDS ORDERED: FAMOTIDINE 20MG VIAL IV ONE (03:00)
[2023-02-14] MEDS ORDERED: ONDA4TAB10 PO (05:05)
[2023-02-14 05:09] VITALS: BP 143/63
== END 2023-02-14 05:16 | disposition home or self-care (01) ==
LOC: EDH 00:11
DX: R11.12 Projectile vomiting (principal); E66.01 Morbid (severe) obesity due to excess calories; Z68.43 Body mass index [BMI] 50.0-59.9, adult; I10 Essential (primary) hypertension; F32.A Depression, unspecified; F41.9 Anxiety disorder, unspecified; E78.00 Pure hypercholesterolemia, unspecified; Z79.82 Long term (current) use of aspirin; Z79.899 Other long term (current) drug therapy; Z86.73 Personal history of transient ischemic attack (TIA), and cerebral infarction without residual deficits; Z98.890 Other specified postprocedural states
CPT/HCPCS: 99285; 96374; 96361; 96375; 83735; 84484; 80053; 85025; 82948; 83605; 82010; 36415; 74018; 96376; 93005; J7030; J2405; S0028; J3490

== ENCOUNTER → 2023-04-04 | Outpatient (CLI) | payer MEDICAID ==
[~2023-04-04] MED LIST changes: +ONDA4TAB10 PO
== END | disposition home or self-care (01) ==
LOC: SHCH 14:35
PROVIDERS: ATTEND Internal Medicine Cardiovascular Disease
DX: I87.2 Venous insufficiency (chronic) (peripheral) (principal)
CPT/HCPCS: 93970

== ENCOUNTER → 2023-06-22 | Outpatient (CLI) | payer MEDICAID | END | disposition home or self-care (01) | LOC: SHCH 15:47 | PROVIDERS: ATTEND Internal Medicine Cardiovascular Disease | DX: I87.2 Venous insufficiency (chronic) (peripheral) (principal); Z98.890 Other specified postprocedural states | CPT/HCPCS: 93971 ==

== ENCOUNTER → 2023-08-11 | Outpatient (CLI) | payer MEDICAID ==
[2023-08-11 12:22] LABS: BASOPHILS # (AUTO) 0.03 K/uL (0.00-0.20); BASOPHILS % (AUTO) 0.4 % (0.0-5.0); EOSINOPHILS # (AUTO) 0.21 K/uL (0.00-0.70); EOSINOPHILS % (AUTO) 2.6 % (0.0-8.0); HEMATOCRIT 33.9 % (36-48); IMMATURE GRANULOCYTE ABSOLUTE 0.02 K/uL (0-1); LYMPHOCYTES # (AUTO) 1.9 K/uL (1.0-4.8); LYMPHOCYTES % (AUTO) 23.1 % (21.0-51.0); MEAN CORPUSCULAR HEMOGLOBIN 30.8 pg (27.0-33.0); MEAN CORPUSCULAR HGB CONC 32.2 g/dL (32.0-36.0); MEAN CORPUSCULAR VOLUME 95.8 fL (79-99); MONOCYTES # (AUTO) 0.6 K/uL (0.1-1.0); MONOCYTES % (AUTO) 6.7 % (3.0-13.0); NEUTROPHILS # (AUTO) 5.5 K/uL (1.8-7.7); PLATELET COUNT (AUTO) 122 K/uL (130-400); RED BLOOD CELL COUNT(AUTO) 3.54 MIL/uL (4.00-5.50); RED CELL DISTRIBUTION WIDTH 13.1 % (11.0-15.5); WHITE BLOOD COUNT (AUTO) 8.2 K/uL (4.8-10.8)
[2023-08-11 12:33] LABS: INR < 0.93 (0.85-1.15); PROTHROMBIN TIME 10.5 SEC (9.6-11.6)
[2023-08-11 12:34] LABS: CREATININE 1.9 mg/dL (0.5-1.5); PARTIAL THROMBOPLASTIN TIME 25.8 SEC (26.3-35.5); POTASSIUM 4.2 mmol/L (3.5-5.1)
== END | disposition home or self-care (01) ==
LOC: LAB 08:51
PROVIDERS: ATTEND Internal Medicine Cardiovascular Disease
DX: I87.2 Venous insufficiency (chronic) (peripheral) (principal); I87.1 Compression of vein
CPT/HCPCS: 36415; 80048; 85025; 85610; 85730

== ENCOUNTER 2023-08-24 06:02 | Day surgery (SDC) | payer MEDICAID ==
[2023-08-19 11:13] LABS: BASOPHILS # (AUTO) 0.02 K/uL (0.00-0.20); BASOPHILS % (AUTO) 0.2 % (0.0-5.0); EOSINOPHILS # (AUTO) 0.16 K/uL (0.00-0.70); EOSINOPHILS % (AUTO) 1.8 % (0.0-8.0); HEMATOCRIT 32.1 % (36-48); IMMATURE GRANULOCYTE ABSOLUTE 0.05 K/uL (0-1); LYMPHOCYTES # (AUTO) 1.6 K/uL (1.0-4.8); LYMPHOCYTES % (AUTO) 17.5 % (21.0-51.0); MEAN CORPUSCULAR HEMOGLOBIN 30.9 pg (27.0-33.0); MEAN CORPUSCULAR HGB CONC 32.4 g/dL (32.0-36.0); MEAN CORPUSCULAR VOLUME 95.3 fL (79-99); MONOCYTES # (AUTO) 0.6 K/uL (0.1-1.0); MONOCYTES % (AUTO) 6.8 % (3.0-13.0); NEUTROPHILS # (AUTO) 6.7 K/uL (1.8-7.7); NEUTROPHILS % (AUTO) 73.2 % (40.0-77.0); PLATELET COUNT (AUTO) 124 K/uL (130-400); RED BLOOD CELL COUNT(AUTO) 3.37 MIL/uL (4.00-5.50); WHITE BLOOD COUNT (AUTO) 9.1 K/uL (4.8-10.8)
[2023-08-19 11:22] LABS: CREATININE 2.4 mg/dL (0.5-1.5); INR < 0.93 (0.85-1.15); POTASSIUM 4.3 mmol/L (3.5-5.1); PROTHROMBIN TIME 10.8 SEC (9.6-11.6)
[2023-08-19 11:23] LABS: PARTIAL THROMBOPLASTIN TIME 26.6 SEC (26.3-35.5)
[2023-08-19 11:48] VITALS: BP 123/70; PULSE 82; RESP 18
[2023-08-24] VITALS (8 sets, daily range): BP systolic 117–151; BP diastolic 57–68; PULSE 85–90; RESP 16
[~2023-08-24] VITALS: Ht 170.2 cm; Wt 130.6 kg
[~2023-08-24 06:02] MED LIST changes: +AMLO-258 PO; -ASPI-1005 PO; +BUPR-317 PO; -BUPROPION HCL; +CLONIDINE PATCH TD; +DULA0.75 SQ; -FERR325T22 PO; +FERS325 PO; +FOLI1TAB85 PO; -FURO40SO4 PO; -Folic Acid/Vitamin B Comp W-C PO; -GABA-529 PO; +LINA5TAB PO; +LOSA100T59 PO; +METO25TA6 PO; -METO50 PO; -METO5TAB7 PO; -NIFE90TA65 PO; +OMEP20CA12 PO; -ONDA4TAB10 PO; +URSO250T12 PO
[2023-08-24] MEDS ORDERED: 0.9%NACL 1000ML 1,000 ML IV ONE (06:19)
[2023-08-24 06:45] LABS: CREATININE 2.3 mg/dL (0.5-1.5); POTASSIUM 4.1 mmol/L (3.5-5.1)
[2023-08-24] MEDS ORDERED: LIDOCAINE HCL 400MG/20ML VIAL ONE (07:58)
[2023-08-24] MEDS ORDERED: FENTANYL CITRATE PF 50 MCG/1 ML 2ML VIAL ONE (07:59)
[2023-08-24] MEDS ORDERED: MIDAZOLAM HCL 1 MG/ML 2ML VIAL ONE (07:59)
[2023-08-24] MEDS ORDERED: IODIXANOL 320 MG/ML 100 ML VIAL ONE (08:00)
[2023-08-24] MEDS ORDERED: GLUCAGON 1MG KIT 1 MG ML IM PRN (08:30)
[2023-08-24] MEDS ORDERED: 0.9%NACL 1000ML 1,000 ML IV SCH (08:30)
[2023-08-24] MEDS ORDERED: DEXTROSE 50%-WATER 50 ML DISP.SYRIN IV PRN (08:30)
[2023-08-24] MEDS ORDERED: INSULIN HUMULIN R 100 UNIT/ML 3ML SQ SCH (11:30)
== END 2023-08-24 11:30 | disposition home or self-care (01) ==
LOC: DAH 06:02
PROVIDERS: ATTEND Internal Medicine Cardiovascular Disease
DX: I87.2 Venous insufficiency (chronic) (peripheral) (principal); I87.1 Compression of vein; I12.9 Hypertensive chronic kidney disease with stage 1 through stage 4 chronic kidney disease, or unspecified chronic kidney disease; E11.22 Type 2 diabetes mellitus with diabetic chronic kidney disease; N18.30 Chronic kidney disease, stage 3 unspecified; E11.51 Type 2 diabetes mellitus with diabetic peripheral angiopathy without gangrene; Z86.73 Personal history of transient ischemic attack (TIA), and cerebral infarction without residual deficits; Z79.4 Long term (current) use of insulin; Z79.899 Other long term (current) drug therapy; Z79.01 Long term (current) use of anticoagulants; Z96.653 Presence of artificial knee joint, bilateral
CPT/HCPCS: 80048 ×2; 85025; 85610; 85730; 36415 ×2; 75822; 36012; 37252; 37253 ×5; 82948; C1769; C1894 ×2; C1753; J3010; J3490 ×2; J7030; J2250; J1644; A4215; A4335; A4222; A4221; A4663; A4216; A4606; A4223 ×3; 96360; 96361; 99156; 99157; Q9967